=== PATIENT | female | born 1995 | race Caucasian/White ===

== ENCOUNTER 2019-04-23 14:41 | Inpatient (IN) | payer BC ==
[~2019-04-23 14:41] MED LIST: Bupivacaine/Epinephrine 0.25% 30 ML VIAL ONE; ePHEDrine/0.9% NaCl/PF SYRINGE 50 mg/10 ml ONE
[2019-04-23 20:05] VITALS: BMI 37.5
[2019-04-23] MEDS ORDERED: HYDROcodone/Acetaminophen 5/325 mg Tablet PO PRN ×2 (20:29)
[2019-04-23] MEDS ORDERED: Diphenoxylate HCl/Atropine Tablet PO PRN ×2 (20:29)
[2019-04-23] MEDS ORDERED: Misoprostol 200 MCG TAB PR PRN (20:29)
[2019-04-23] MEDS ORDERED: Acetaminophen 500 MG TAB PO PRN (20:29)
[2019-04-23] MEDS ORDERED: hydrALAZINE 20 MG/ML VIAL SLOW IVP PRN (20:29)
[2019-04-23] MEDS ORDERED: NS / Oxytocin 40 units/1000ml 1,000 ML IV PRN (20:29)
[2019-04-23] MEDS ORDERED: Carboprost 250 MCG/ML AMP IM PRN (20:29)
[2019-04-23] MEDS ORDERED: Methylergonovine 0.2 MG/ML VIAL IM PRN (20:29)
[2019-04-23] MEDS ORDERED: Lidocaine 1% (PF) 30 ML VIAL SC PRN (20:29)
[2019-04-23] MEDS ORDERED: Ondansetron PF 4 MG/2 ML Vial IVP PRN (20:29)
[2019-04-23] MEDS ORDERED: Promethazine HCl 25 MG/ML VIAL IM PRN (20:29)
[2019-04-23] MEDS ORDERED: Ibuprofen 800 MG TAB PO PRN (20:29)
[2019-04-23] MEDS ORDERED: Zolpidem Tartrate 5 MG TAB PO PRN (20:29)
[2019-04-23] MEDS ORDERED: NS w/ Oxytocin 10 units 500 ML IV SCH (20:30)
[2019-04-23 21:04] LABS: Hemoglobin 10.5 g/dL (12.0-16.0); Mean Corpuscular HGB CONC 34.4 g/dL (32.0-36.0); Mean Corpuscular Hemoglobin 28.3 pg (27.0-31.0); Mean Corpuscular Volume 82.3 fL (78.0-98.0); Mean Platelet Volume 7.3 fL (7.4-10.4); Platelet Count 305 thou/uL (130-400); RBC Distribution Width 12.2 % (11.5-14.5); Red Blood Cell (RBC) Count 3.72 mill/uL (4.20-5.40); White Blood Cell (WBC) Count 11.3 thou/uL (4.8-10.8)
[2019-04-23] MEDS: Lactated Ringer's 1,000 ML IV SCH (21:07)
[2019-04-23] MEDS: Misoprostol 100 MCG TAB VAG SCH (21:07)
[2019-04-23 21:46] LABS: Syphilis Antibody Nonreactive (Nonreactive); Syphilis Antibody Index 0.06 S/CO (<1.00 Non-Reactive)
[2019-04-23 22:29] LABS: HBSAg Index 0.18 S/CO (0-0.99); Hep B Surf Ag Non-Reactive S/CO (NonReactive)
[2019-04-24] MEDS: Lactated Ringer's 1,000 ML IV SCH ×2 (02:11→21:23)
[2019-04-24] MEDS: Misoprostol 100 MCG TAB VAG SCH ×3 (02:13→08:40)
--- NOTE | 2019-04-24 11:56 | PDOC.LDHP ---
Labor and Delivery H&P Chief complaint: scheduled induction HPI: 23yo at 38w4d by LMP here for IOL for polyhydramnios. s/p cytotec x 4 Current gestational age (weeks): 38 Due date: 05/04/19 Dating criteria: last menstrual period Grav: 1 Para: 0 Current complications: other (polyhydramnios) Abnormal US findings: Yes (polyhydramnios, EFW 99%ile) Past Medical History: denies Current medications: pre-angelito vitamins Previous surgical history: none Allergies/Adverse Reactions: Allergies Allergy/AdvReac Type Severity Reaction Status Date / Time No Known Allergies Allergy Unverified 04/23/19 19:57 Social history: none - Physical Exam Vital signs reviewed and normal: yes General: NAD Heart: RRR Lungs: CTAB Abdomen: gravid Extremeties: no edema FHT: category 1 [place] contractions every: 2-3min - Vaginal Exam cm dilated: 1 Effacement: 50% Station: -2 (cook balloon placed 60/60) - OB Labs Blood type: A RH: positive Antibody Screen: negative HIV: negative RPR: negative HEPSAg: negative 1 hour GCT: negative GBS: negative Urine drug screen: negative Rubella: immune - Assessment L&D Assessment: medically indicated induction - Plan Plan: admit to L&D, cervical ripening, labor augmentation if indicated, informed consent obtained, anesthesia consult for pain management
[2019-04-24] MEDS: Butorphanol Tartrate 1 MG/ML VIAL SLOW IVP PRN ×3 (12:41→15:08)
[2019-04-24] MEDS ORDERED: Fentanyl 4 mcg/Bup 0.1% Cadd 100 ML ONE (15:12)
[2019-04-24] MEDS ORDERED: Acetaminophen 325 MG TAB PO PRN (16:00)
[2019-04-24] MEDS ORDERED: Promethazine HCl 25 MG/ML VIAL IM PRN (16:00)
[2019-04-24] MEDS ORDERED: Naloxone HCl 0.4 mg/ml Vial IVP PRN ×2 (16:00)
[2019-04-24] MEDS ORDERED: ePHEDrine/0.9% NaCl/PF SYRINGE 50 mg/10 ml SLOW IVP PRN (16:00)
[2019-04-24] MEDS ORDERED: Lactated Ringer's 500 ML IV PRN (16:00)
[2019-04-24] MEDS ORDERED: Communication Order-Pharmacy FS SCH (16:00)
[2019-04-24] MEDS ORDERED: Ondansetron PF 4 MG/2 ML Vial IVP PRN (16:00)
[2019-04-24] MEDS ORDERED: diphenhydrAMINE 50 MG/ML VIAL IVP PRN (16:00)
[2019-04-24] MEDS: Fentanyl 4 mcg/Bupivacaine 0.1% Cassette 100 ML EPIDURAL SCH (22:09)
[2019-04-25] MEDS: Fentanyl 4 mcg/Bupivacaine 0.1% Cassette 100 ML EPIDURAL SCH (03:15)
[2019-04-25] MEDS: Lactated Ringer's 1,000 ML IV SCH ×2 (05:25→11:05)
--- NOTE | 2019-04-25 09:06 | PDOC.OPDEL ---
OB Operative/Delivery Note Delivery Dr/Surgeon: Patrick Pre-Delivery Diagnosis: medically indicated induction Procedure/Post Delivery Dx: spontaneous vaginal delivery Weeks gestation: 38 Anesthesia: epidural - Findings A Sex: male - 1 min: 9 - 5 min: 9 - Additional Findings/Plan Placenta delivered: spontaneous Repaired Obstetrical Laceration: 2nd degree Estimated blood loss: 150 Post delivery plan: routine recovery
[2019-04-25] MEDS ORDERED: Preparation H Ointment 28 GM TUBE PR PRN (09:22)
[2019-04-25] MEDS ORDERED: Bisacodyl 10 MG SUPP PR PRN (09:22)
[2019-04-25] MEDS ORDERED: NS / Oxytocin 40 units/1000ml 1,000 ML IV SCH (09:22)
[2019-04-25] MEDS ORDERED: Ondansetron PF 4 MG/2 ML Vial IVP PRN (09:22)
[2019-04-25] MEDS ORDERED: Promethazine HCl 25 MG/ML VIAL IM PRN (09:22)
[2019-04-25] MEDS ORDERED: diphenhydrAMINE 25 MG CAP PO PRN (09:22)
[2019-04-25] MEDS ORDERED: Lanolin Ointment 7 GM TUBE TOP PRN (09:22)
[2019-04-25] MEDS ORDERED: hydrALAZINE 20 MG/ML VIAL SLOW IVP PRN (09:22)
[2019-04-25] MEDS ORDERED: Benzocaine-Menthol 82.5 ML CAN TOP PRN (09:22)
[2019-04-25] MEDS ORDERED: Adacel (T-DAP) 0.5 ML SYRINGE IM ONE (09:22)
[2019-04-25] MEDS ORDERED: Milk Of Magnesia 30 ML UDCUP PO PRN (09:22)
[2019-04-25] MEDS ORDERED: HYDROcodone/Acetaminophen 5/325 mg Tablet PO PRN ×2 (09:22)
[2019-04-25] MEDS: Misoprostol 100 MCG TAB VAG SCH ×3 (11:03→11:05)
[2019-04-25] MEDS: Ibuprofen 800 MG TAB PO SCH ×2 (13:33→21:38)
[2019-04-25] MEDS: Ferrous Sulfate 325 MG TAB PO SCH (14:13)
[2019-04-25] MEDS: Docusate Calcium (SURFAK) 240 MG CAP PO SCH (21:37)
[2019-04-26] MEDS: Ibuprofen 800 MG TAB PO SCH ×3 (04:57→21:57)
[2019-04-26 05:29] LABS: Hemoglobin 8.3 g/dL (12.0-16.0); Mean Corpuscular HGB CONC 33.5 g/dL (32.0-36.0); Mean Corpuscular Hemoglobin 28.4 pg (27.0-31.0); Mean Corpuscular Volume 84.8 fL (78.0-98.0); Mean Platelet Volume 7.6 fL (7.4-10.4); Platelet Count 216 thou/uL (130-400); RBC Distribution Width 12.4 % (11.5-14.5); Red Blood Cell (RBC) Count 2.92 mill/uL (4.20-5.40); White Blood Cell (WBC) Count 15.6 thou/uL (4.8-10.8)
--- NOTE | 2019-04-26 08:55 | PDOC.PP ---
Post Progress Note Post Day #: 1 Subjective: PT is doing well this am. Pain well controlled. Bleeding has decreased and less than menses. She is breast feeding with some latch difficulties. She has been up and ambulatory. She is urinating normally. She has no chest pain , SOB or leg swelling. PO intake tolerated: yes Flatus: yes Ambulation: yes Vital Signs (12 hours) Temp Pulse Resp BP Pulse Ox 04/26/19 04:00 97.7 F 72 18 100/57 L 98 04/26/19 00:15 98.0 F 90 18 115/56 L 96 04/25/19 21:15 95 Weight Weight 219 lb - Physical Examination General: NAD Respiratory: non-labored breathing Abdominal: + bowel sounds, lochia, no distention, appropriately TTP Fundus firm & at: the umbilicus Extremities: negative homans (B) Neurological: no gross focal deficits Psychiatric: A&Ox3, normal affect Result Diagrams: 04/26/19 04:43 Additional Labs: Post Labs Blood Type A POSITIVE 04/23/19 22:05 Hep Bs Antigen Non-Reactive S/CO (NonReactive) 04/23/19 20:54 (1) Vaginal delivery Code(s): O80 - ENCOUNTER FOR FULL-TERM UNCOMPLICATED DELIVERY Status: Acute - Assessment/Plan Pt doing well PPD1. VSS, afebrile. PT breast feeding. consultation placed to work on latching. Lochia less than menses. Rh+, GBS- Plan to continue routine PP care at this time and consider D/c tomorrow.
[2019-04-26] MEDS: Docusate Calcium (SURFAK) 240 MG CAP PO SCH ×2 (10:06→21:57)
[2019-04-26] MEDS: Ferrous Sulfate 325 MG TAB PO SCH ×2 (10:06→18:11)
[2019-04-26] MEDS: Prenatal Vitamin 1 TAB PO SCH (10:06)
[2019-04-27] MEDS: Ibuprofen 800 MG TAB PO SCH ×2 (06:23→14:17)
[2019-04-27 08:39] VITALS: BP 111/55; TEMP 98.2
[2019-04-27] MEDS: Prenatal Vitamin 1 TAB PO SCH (09:33)
[2019-04-27] MEDS: Ferrous Sulfate 325 MG TAB PO SCH (09:33)
[2019-04-27] MEDS: Docusate Calcium (SURFAK) 240 MG CAP PO SCH (09:33)
--- NOTE | 2019-04-27 11:50 | PDOC.PP ---
Post Progress Note Post Day #: 2 PO intake tolerated: yes Flatus: yes Ambulation: yes Vital Signs (12 hours) Temp Pulse Resp BP Pulse Ox 04/27/19 08:39 98.2 F 73 20 111/55 L 98 Weight Weight 219 lb - Physical Examination General: NAD Respiratory: non-labored breathing Abdominal: no distention, appropriately TTP Fundus firm & at: umb Extremities: negative homans (B) Neurological: no gross focal deficits Psychiatric: normal affect Result Diagrams: 04/26/19 04:43 Additional Labs: Post Labs Blood Type A POSITIVE 04/23/19 22:05 Hep Bs Antigen Non-Reactive S/CO (NonReactive) 04/23/19 20:54 - Assessment/Plan PPD2 s/p TSVD VSSAF Doing well, lochia < menses s/p LC Rh pos RImm DC home FU 6w
== END 2019-04-27 16:35 | disposition home or self-care (01) | DRG 807 ==
LOC: L&D 19:19 → 3SW 04-25 10:43
PROVIDERS: ADMIT Student in an Organized Health Care Education/Training Program; ATTEND Student in an Organized Health Care Education/Training Program
PROC: 10E0XZZ Delivery of Products of Conception, External Approach (ICD-10-PCS; principal; 2019-04-25)
PROC: 0KQM0ZZ Repair Perineum Muscle, Open Approach (ICD-10-PCS; 2019-04-25)
PROC: 3E0P7VZ Introduction of Hormone into Female Reproductive, Via Natural or Artificial Opening (ICD-10-PCS; 2019-04-25)
PROC: 3E033VJ Introduction of Other Hormone into Peripheral Vein, Percutaneous Approach (ICD-10-PCS; 2019-04-25)
DX: O40.3XX0 Polyhydramnios, third trimester, not applicable or unspecified (principal); Z37.0 Single live birth; O70.1 Second degree perineal laceration during delivery; Z3A.38 38 weeks gestation of pregnancy
CPT/HCPCS: 36415; 51702; 85027; 86780; 86850; 86900; 86901; 87340; J0595; J2405; J2590

== ENCOUNTER 2020-03-13 14:22 | Day surgery (SDC) | payer BC ==
[2020-03-13 15:17] VITALS: BMI 38.9
[2020-03-13 16:48] LABS: Bilirubin Negative (Negative); Blood, Urine Moderate (Negative); Glucose, Urine (Dipstick) Negative (Negative); Ketone, Urine Negative (Negative); Leukocyte Negative (Negative); Nitrite Negative (Negative); Protein, Urine (Dipstick) Negative (Neg-Trace); Urobilinogen 0.2 mg/dL (Less than 2); pH, Urine 7.5 (5.0-9.0)
[2020-03-13 16:49] LABS: Clarity Hazy (Clear)
[2020-03-13] MEDS ORDERED: hydrALAZINE 20 MG/ML VIAL SLOW IVP PRN (16:54)
[2020-03-13 17:00] LABS: Bacteria/HPF 3+ HPF (None Seen)
[2020-03-14] MEDS ORDERED: hydrALAZINE 20 MG/ML VIAL SLOW IVP PRN (06:21)
--- NOTE | 2020-03-14 07:31 | PRG ---
DATE OF SERVICE: 03/13/2020 PRIMARY OB: Dr. Catherine Nguyen. CHIEF COMPLAINT: Abdominal pains. HISTORY OF PRESENT ILLNESS: The patient is a 24-year-old, G2, P1 female with an intrauterine at 33 weeks and a day, presenting to Labor and Delivery for complaints of abdominal tightening since about 7:30 this morning. She reports that they had gotten more uncomfortable as the day progressed at work and came in for evaluation. The patient does report that since coming and resting, she has had some improvement in her symptoms. The patient reports that the pains are in her lower abdomen and suprapubic. She does have some lower back pain. The patient denies leakage of fluid or change in discharge. She does report some difficulty with urination. She denies cough, headache, chest pain, shortness of breath, nausea, vomiting, diarrhea, constipation, hip problems, knee problems, muscle weakness, any new rashes, vaginal bleeding, leakage of fluid, or urinary urgency. REVIEW OF SYSTEMS: The patient reports contractions lasting about 30 seconds with cramping about every 5 to 7 minutes. PAST MEDICAL HISTORY: Negative. PAST SURGICAL HISTORY: Negative. ALLERGIES: NO KNOWN DRUG ALLERGIES. OBSTETRIC HISTORY: She has had a short interval with her last baby delivered approximately one year ago. ALLERGIES: NO KNOWN DRUG ALLERGIES. MEDICATIONS: vitamins. SOCIAL HISTORY: Denies drug, alcohol, or tobacco use. REVIEW OF SYSTEMS: Per HPI. PHYSICAL EXAMINATION: VITAL SIGNS: Blood pressure is 120/62, heart rate of 114, and respiratory rate of 18. GENERAL: She appears to be in no acute distress. She is alert, oriented, cooperative, and pleasant to interact with. HEAD: Normocephalic and atraumatic. LUNGS: Clear to auscultation bilaterally. HEART: Regular rate and rhythm. ABDOMEN: Gravid, soft, and nontender. EXTREMITIES: Nontender and nonedematous. : Vulva is without masses, lesions, or erythema. Vagina is moist. There is no unusual discharge or exudate. Cervix appears full and healthy. On digital exam, cervix is closed and thick. DIAGNOSTIC DATA: heart tracing shows the fetus with a baseline in the 130s with moderate long-term variability, positive 15 x 15 accelerations, no decelerations. LABORATORY DATA: Urinalysis shows pH of 7.5, specific gravity of 1.020, protein negative, glucose negative, ketones negative, blood moderate, nitrites are negative, leukocyte esterase negative, rbc's 11 to 20, white blood cells 4 to 6, squamous cells 7 to 10, urine bacteria 3+. VPIII is negative for Trichomonas, Gardnerella, and Joanne. ASSESSMENT AND PLAN: The patient is a 24-year-old, G2, P1 female with an intrauterine at 33 weeks and a day, presenting with lower abdominal pains, suprapubic discomfort, and some difficulty urinating. Urinalysis does show bacteria, but it is also contaminated with squamous cells giving some uncertainty as to the source of this bacteria. Given the patient's overall symptoms, however after discussing findings with the patient, we have decided to proceed with antibiotics. The patient will be given Macrobid 100 mg to be taken twice a day for 7 days. Urine culture has been sent. Results were relayed to the patient by phone as the patient was discharged home prior to the results becoming available. The patient was given instructions to follow up with Dr. Nguyen as scheduled or sooner if need be. Fetus has a category 1 tracing and reactive NST. No evidence of labor is present. Job ID: [id number]
== END 2020-03-13 17:10 | disposition home or self-care (01) ==
LOC: L&D/OP 14:22
PROVIDERS: ATTEND Student in an Organized Health Care Education/Training Program
DX: O99.891 Other specified diseases and conditions complicating pregnancy (principal); R10.2 Pelvic and perineal pain; R10.30 Lower abdominal pain, unspecified; R82.71 Bacteriuria; Z3A.33 33 weeks gestation of pregnancy; Z79.899 Other long term (current) drug therapy
CPT/HCPCS: 81001; 87480; 87510; 87660

== ENCOUNTER 2020-04-26 08:40 | Outpatient (CLI) | payer BC ==
[2020-04-26 21:36] LABS: SARS-CoV-2 MS2 Positive; SARS-CoV-2 N Gene Negative; SARS-CoV-2 S Gene Negative; SARS-CoV-2 by NAA Not Detected (NotDetected); SARS-CoV-2 orf1ab Negative
== END 2020-04-26 08:41 | disposition home or self-care (01) ==
LOC: LABBT 08:40
PROVIDERS: ATTEND Student in an Organized Health Care Education/Training Program
DX: Z20.828 Contact with and (suspected) exposure to other viral communicable diseases (principal)
CPT/HCPCS: 87635; U0003

== ENCOUNTER 2020-04-30 05:30 | Inpatient (IN) | payer BC ==
[2020-04-30] MEDS: Lactated Ringer's 1,000 ML IV SCH ×2 (05:58→18:58)
[2020-04-30] MEDS ORDERED: Ondansetron PF 4 MG/2 ML Vial IVP PRN ×3 (06:15→18:18)
[2020-04-30] MEDS ORDERED: Methylergonovine 0.2 MG/ML VIAL IM PRN (06:15)
[2020-04-30] MEDS ORDERED: NS / Oxytocin 40 units/1000ml 1,000 ML IV PRN (06:15)
[2020-04-30] MEDS ORDERED: Lidocaine 1% (PF) 30 ML VIAL SC PRN (06:15)
[2020-04-30] MEDS ORDERED: Acetaminophen 500 MG TAB PO PRN (06:15)
[2020-04-30] MEDS ORDERED: Carboprost 250 MCG/ML AMP IM PRN (06:15)
[2020-04-30] MEDS ORDERED: HYDROcodone/Acetaminophen 5/325 mg Tablet PO PRN ×3 (06:15→18:18)
[2020-04-30] MEDS ORDERED: Butorphanol Tartrate 1 MG/ML VIAL SLOW IVP PRN (06:15)
[2020-04-30] MEDS ORDERED: Misoprostol 200 MCG TAB PR PRN (06:15)
[2020-04-30] MEDS ORDERED: Diphenoxylate HCl/Atropine Tablet PO PRN (06:15)
[2020-04-30] MEDS ORDERED: hydrALAZINE 20 MG/ML VIAL SLOW IVP PRN ×2 (06:15→18:18)
[2020-04-30] MEDS ORDERED: Ibuprofen 800 MG TAB PO PRN (06:15)
[2020-04-30] MEDS ORDERED: Promethazine HCl 25 MG/ML VIAL IM PRN ×3 (06:15→18:18)
[2020-04-30 06:20] VITALS: BMI 40.7
[2020-04-30 06:46] LABS: Hemoglobin 11.9 g/dL (12.0-16.0); Mean Corpuscular HGB CONC 33.6 g/dL (32.0-36.0); Mean Corpuscular Hemoglobin 29.2 pg (27.0-31.0); Mean Corpuscular Volume 87.1 fL (78.0-98.0); Mean Platelet Volume 7.9 fL (7.4-10.4); Platelet Count 253 thou/uL (130-400); RBC Distribution Width 13.2 % (11.5-14.5); Red Blood Cell (RBC) Count 4.05 mill/uL (4.20-5.40); White Blood Cell (WBC) Count 10.4 thou/uL (4.8-10.8)
[2020-04-30 07:21] LABS: Syphilis Antibody Nonreactive (Nonreactive); Syphilis Antibody Index 0.04 S/CO (<1.00 Non-Reactive)
[2020-04-30 07:22] LABS: HBSAg Index 0.18 S/CO (0-0.99); Hep B Surf Ag Non-Reactive S/CO (NonReactive)
[2020-04-30] MEDS ORDERED: Fentanyl 4 mcg/Bup 0.1% Cadd 100 ML EPIDURAL SCH (10:15)
--- NOTE | 2020-04-30 10:30 | PDOC.LDHP ---
Labor and Delivery H&P Chief complaint: scheduled induction HPI: 24yo at 40w0d by LMP here for elective IOL. No complaints. Current gestational age (weeks): 40 Due date: 04/30/20 Dating criteria: last menstrual period Grav: 2 Para: 1 Current complications: none Abnormal US findings: No Past Medical History: hypothyroid Current medications: pre-angelito vitamins, other (levothyroxine) Previous surgical history: none Allergies/Adverse Reactions: Allergies Allergy/AdvReac Type Severity Reaction Status Date / Time No Known Allergies Allergy Verified 04/30/20 06:04 Social history: none - Physical Exam Vital signs reviewed and normal: yes General: NAD Heart: RRR Lungs: CTAB Abdomen: gravid Extremeties: no edema FHT: category 1 [place] contractions every: 3-5min - Vaginal Exam cm dilated: 3 Effacement: 50% Station: -2 (arom thick mec) - OB Labs Blood type: A RH: positive Antibody Screen: negative HIV: negative RPR: negative HEPSAg: negative 1 hour GCT: positive GBS: negative Urine drug screen: negative Rubella: immune - Assessment L&D Assessment: elective induction at term - Plan Plan: admit to L&D, labor augmentation if indicated, informed consent obtained, anesthesia consult for pain management
[2020-04-30] MEDS ORDERED: Naloxone HCl 0.4 mg/ml Vial IVP PRN ×2 (11:42)
[2020-04-30] MEDS ORDERED: diphenhydrAMINE 50 MG/ML VIAL IVP PRN (11:42)
[2020-04-30] MEDS ORDERED: Acetaminophen 325 MG TAB PO PRN (11:42)
[2020-04-30] MEDS ORDERED: Lactated Ringer's 500 ML IV PRN (11:42)
[2020-04-30] MEDS ORDERED: ePHEDrine 50 MG/ML VIAL SLOW IVP PRN (11:42)
[2020-04-30] MEDS ORDERED: Fentanyl 4 mcg/Bupivacaine 0.1% Cassette 100 ML EPIDURAL SCH (11:45)
[2020-04-30] MEDS ORDERED: Communication Order-Pharmacy FS SCH (11:45)
--- NOTE | 2020-04-30 17:29 | PDOC.OPDEL ---
OB Operative/Delivery Note Delivery Dr/Surgeon: Patrick Assist: n/a Pre-Delivery Diagnosis: elective induction Procedure/Post Delivery Dx: spontaneous vaginal delivery Weeks gestation: 40 Anesthesia: epidural - Findings A Sex: male - 1 min: 8 - 5 min: 9 - Additional Findings/Plan Placenta delivered: spontaneous Repaired Obstetrical Laceration: 1st degree Estimated blood loss: 250cc Post delivery plan: routine recovery
[2020-04-30] MEDS ORDERED: Bisacodyl 10 MG SUPP PR PRN (18:18)
[2020-04-30] MEDS ORDERED: Benzocaine-Menthol 82.5 ML CAN TOP PRN (18:18)
[2020-04-30] MEDS ORDERED: Preparation H Ointment 28 GM TUBE PR PRN (18:18)
[2020-04-30] MEDS ORDERED: diphenhydrAMINE 25 MG CAP PO PRN (18:18)
[2020-04-30] MEDS ORDERED: Milk Of Magnesia 30 ML UDCUP PO PRN (18:18)
[2020-04-30] MEDS ORDERED: NS w/ Oxytocin 30 units 500 ML IV SCH (19:15)
[2020-04-30] MEDS: Ibuprofen 800 MG TAB PO SCH (21:05)
[2020-04-30] MEDS: Docusate Calcium (SURFAK) 240 MG CAP PO SCH (21:05)
[2020-04-30] MEDS ORDERED: Lanolin Ointment 7 GM TUBE TOP PRN (23:06)
[2020-05-01] MEDS: Ibuprofen 800 MG TAB PO SCH ×2 (05:53→14:12)
--- NOTE | 2020-05-01 07:41 | PDOC.PP ---
Post Progress Note Post Day #: 1 PO intake tolerated: yes Flatus: yes Ambulation: yes Vital Signs (12 hours) Temp Pulse Resp BP 05/01/20 05:45 98.3 F 81 16 111/59 L 05/01/20 00:04 98.4 F 67 16 99/55 L 04/30/20 20:30 98.3 F 89 16 113/51 L Weight Weight 230 lb - Physical Examination Abdominal: no distention, appropriately TTP Extremities: negative homans (B) Result Diagrams: 04/30/20 06:32 Additional Labs: Post Labs Hep Bs Antigen Non-Reactive S/CO (NonReactive) 04/30/20 06:33 Blood Type A POSITIVE 04/30/20 06:32 - Assessment/Plan Post day1.. Doing well. Probable discharge today if baby released. F/u [address] Nguyen.
[2020-05-01] MEDS ORDERED: Ferrous Sulfate 325 MG TAB PO SCH (08:00)
[2020-05-01] MEDS ORDERED: Adacel (T-DAP) 0.5 ML SYRINGE IM ONE (09:00)
[2020-05-01] MEDS: Docusate Calcium (SURFAK) 240 MG CAP PO SCH (09:03)
[2020-05-01 11:42] VITALS: BP 112/57; TEMP 98.1
== END 2020-05-01 18:21 | disposition home or self-care (01) | DRG 807 ==
LOC: L&D 05:36 → 3SW 18:22
PROVIDERS: ADMIT Student in an Organized Health Care Education/Training Program; ATTEND Student in an Organized Health Care Education/Training Program
PROC: 10E0XZZ Delivery of Products of Conception, External Approach (ICD-10-PCS; principal; 2020-04-30)
PROC: 0HQ9XZZ Repair Perineum Skin, External Approach (ICD-10-PCS; 2020-04-30)
DX: O48.0 Post-term pregnancy (principal); Z37.0 Single live birth; Z3A.40 40 weeks gestation of pregnancy; O99.284 Endocrine, nutritional and metabolic diseases complicating childbirth; E03.9 Hypothyroidism, unspecified; O77.0 Labor and delivery complicated by meconium in amniotic fluid; O70.0 First degree perineal laceration during delivery
CPT/HCPCS: 36415; 51702; 85027; 86780; 86850; 86900; 86901; 87340